=== PATIENT | female | born 1995 | race Hispanic/Latino ===

== ENCOUNTER 2021-03-24 11:12 | Outpatient (CLI) | payer OTHER ==
[2021-03-24 22:09] LABS: SARS-CoV-2 PCR by NAA Not Detected (NotDetected)
== END 2021-03-24 11:13 | disposition home or self-care (01) ==
LOC: CSHLAB 11:12
PROVIDERS: ATTEND Obstetrics & Gynecology
DX: Z20.822 Contact with and (suspected) exposure to COVID-19 (principal)
CPT/HCPCS: U0003; U0005

== ENCOUNTER 2021-03-28 04:48 | Inpatient (IN) | payer OTHER ==
[2021-03-28 05:17] VITALS: BMI 37.8
[2021-03-28] MEDS ORDERED: NS w/ Oxytocin 30 units 500 ML ONE (06:21)
[2021-03-28] MEDS ORDERED: NS w/ Oxytocin 30 units 500 ML IV SCH (06:30)
[2021-03-28] MEDS ORDERED: hydrALAZINE 20 MG/ML VIAL SLOW IVP PRN (06:30)
[2021-03-28] MEDS ORDERED: NS w/ Oxytocin 30 units 500 ML IVPB SCH (06:30)
[2021-03-28] MEDS ORDERED: Promethazine HCl 25 MG/ML VIAL IM PRN (06:30)
[2021-03-28] MEDS ORDERED: Butorphanol Tartrate 1 MG/ML VIAL SLOW IVP PRN (06:30)
[2021-03-28] MEDS ORDERED: Ondansetron PF 4 MG/2 ML Vial IVP PRN (06:30)
[2021-03-28] MEDS ORDERED: Lidocaine 1% (PF) 30 ML VIAL SC PRN (06:30)
[2021-03-28] MEDS: Lactated Ringer's 1,000 ML IV SCH ×3 (06:54→18:21)
[2021-03-28] MEDS: NS w/ Oxytocin 30 units 500 ML IV SCH (06:54)
[2021-03-28] MEDS ORDERED: Bupivacaine 0.25% HCL 30 ML VIAL ONE (08:00)
[2021-03-28 08:08] LABS: Hemoglobin 9.9 g/dL (12.0-15.5); Mean Corpuscular HGB CONC 32.4 g/dL (32.0-36.0); Mean Corpuscular Hemoglobin 28.2 pg (27.0-33.0); Mean Corpuscular Volume 87.2 fl (81.6-98.3); Mean Platelet Volume 11.9 fl (7.4-10.4); Platelet Count 255 10x3/uL (150-450); RBC Distribution Width 13.8 % (11.5-14.5); Red Blood Cell (RBC) Count 3.51 10x6/uL (3.90-5.03); White Blood Cell (WBC) Count 8.1 10x3/uL (3.5-10.5)
[2021-03-28 08:35] LABS: Syphilis Antibody Nonreactive (Nonreactive)
[2021-03-28 08:43] LABS: Hep B Surf Ag Non-Reactive S/CO (NonReactive)
[2021-03-28 08:44] LABS: Syphilis Antibody Index 0.06 S/CO (<1.00 Non-Reactive)
[2021-03-28 09:19] LABS: HBSAg Index 0.21 S/CO (0-0.99)
[2021-03-28] MEDS ORDERED: Misoprostol 100 MCG TAB ONE (16:23)
[2021-03-28] MEDS: CEFAZOLIN 2 GM in Premix Bag 1 BAG IVPB SCH (22:39)
[2021-03-28] MEDS: Misoprostol 100 MCG TAB PO PRN (23:21)
[2021-03-29] MEDS: Misoprostol 100 MCG TAB PO PRN (04:59)
[2021-03-29] MEDS: CEFAZOLIN 2 GM in Premix Bag 1 BAG IVPB SCH (06:50)
[2021-03-29] MEDS ORDERED: Misoprostol 200 MCG TAB ONE (07:26)
[2021-03-29] MEDS: NS w/ Oxytocin 30 units 500 ML IV SCH (09:23)
[2021-03-29] MEDS: Lactated Ringer's 1,000 ML IV SCH (09:26)
[2021-03-29] MEDS ORDERED: Fentanyl 2 mcg/Bup 0.1% Cadd 100 ML ONE (10:51)
[2021-03-29] MEDS ORDERED: ePHEDrine Sulfate 50 MG/10 ML VIAL SLOW IVP PRN (11:29)
[2021-03-29] MEDS ORDERED: Hydrocerin (Eucerin) Cream 120 gm Jar TOP PRN (11:29)
[2021-03-29] MEDS ORDERED: Promethazine HCl 25 MG/ML VIAL IM PRN (11:29)
[2021-03-29] MEDS ORDERED: Naloxone HCl 0.4 mg/ml Vial IVP PRN ×2 (11:29)
[2021-03-29] MEDS ORDERED: Ondansetron PF 4 MG/2 ML Vial IVP PRN ×2 (11:29→15:26)
[2021-03-29] MEDS ORDERED: Acetaminophen 325 MG TAB PO PRN (11:29)
[2021-03-29] MEDS ORDERED: Lactated Ringer's 500 ML IV PRN (11:29)
[2021-03-29] MEDS ORDERED: diphenhydrAMINE 50 MG/ML VIAL IVP PRN (11:29)
[2021-03-29] MEDS ORDERED: Communication Order-Pharmacy FS PRN (11:30)
[2021-03-29] MEDS ORDERED: Fentanyl 2 mcg/Bupivacaine 0.1% Cassette 100 ML EPIDURAL SCH (11:30)
[2021-03-29] MEDS ORDERED: Misoprostol 200 MCG TAB PR SCH (14:30)
[2021-03-29] MEDS ORDERED: Zolpidem Tartrate 5 MG TAB PO PRN (15:26)
[2021-03-29] MEDS ORDERED: Milk Of Magnesia 30 ML UDCUP PO PRN (15:26)
[2021-03-29] MEDS ORDERED: Bisacodyl 10 MG SUPP PR PRN (15:26)
[2021-03-29] MEDS ORDERED: Varicella virus, LIVE 0.5 ML VIAL SC ONE (15:26)
[2021-03-29] MEDS ORDERED: Preparation H Ointment 28 GM TUBE PR PRN (15:26)
[2021-03-29] MEDS ORDERED: diphenhydrAMINE 25 MG CAP PO PRN (15:26)
[2021-03-29] MEDS ORDERED: HYDROcodone/Acetaminophen 5/325 mg Tablet PO PRN (15:26)
[2021-03-29] MEDS ORDERED: Methylergonovine 0.2 MG/ML VIAL IM PRN (15:26)
[2021-03-29] MEDS ORDERED: Lanolin Ointment 7 GM TUBE TOP PRN (15:26)
[2021-03-29] MEDS ORDERED: Boostrix 0.5 ML (Tdap) VIAL IM ONE (15:26)
[2021-03-29] MEDS ORDERED: Misoprostol 200 MCG TAB VAG PRN (15:26)
[2021-03-29] MEDS ORDERED: Measles/Mumps/Rubella 10 MCG/0.5 ML VIAL SC ONE (15:26)
[2021-03-29] MEDS ORDERED: hydrALAZINE 20 MG/ML VIAL SLOW IVP PRN (15:26)
[2021-03-29] MEDS ORDERED: NS w/ Oxytocin 30 units 500 ML IV SCH (15:26)
[2021-03-29] MEDS ORDERED: Benzocaine-Menthol 82.5 ML CAN TOP PRN (15:26)
[2021-03-29] MEDS: Ferrous Sulfate 325 MG TAB PO SCH (18:45)
[2021-03-29] MEDS: Ibuprofen 800 MG TAB PO SCH (21:30)
[2021-03-29] MEDS: Docusate Calcium (SURFAK) 240 MG CAP PO SCH (21:30)
[2021-03-30] MEDS: Ibuprofen 800 MG TAB PO SCH ×2 (04:59→14:15)
[2021-03-30 06:08] LABS: Hemoglobin 9.7 g/dL (12.0-15.5); Mean Corpuscular HGB CONC 32.8 g/dL (32.0-36.0); Mean Corpuscular Hemoglobin 28.2 pg (27.0-33.0); Mean Platelet Volume 11.1 fl (7.4-10.4); Platelet Count 233 10x3/uL (150-450); Red Blood Cell (RBC) Count 3.44 10x6/uL (3.90-5.03); White Blood Cell (WBC) Count 10.2 10x3/uL (3.5-10.5)
[2021-03-30 08:01] VITALS: TEMP 97.9
[2021-03-30] MEDS: Lactated Ringer's 1,000 ML IV SCH (08:18)
[2021-03-30] MEDS: CEFAZOLIN 2 GM in Premix Bag 1 BAG IVPB SCH (08:18)
[2021-03-30] MEDS: Docusate Calcium (SURFAK) 240 MG CAP PO SCH (08:42)
[2021-03-30] MEDS: Ferrous Sulfate 325 MG TAB PO SCH ×2 (08:42→16:44)
[2021-03-30] MEDS ORDERED: Prenatal Vitamin 1 TAB PO SCH (09:00)
[2021-03-30 11:50] VITALS: BP 116/56
== END 2021-03-30 18:40 | disposition home or self-care (01) | DRG 807 ==
LOC: CSHLD 04:48 → CSHPP 03-29 15:25
PROVIDERS: ADMIT Obstetrics & Gynecology; ATTEND Obstetrics & Gynecology
PROC: 3E0P7VZ Introduction of Hormone into Female Reproductive, Via Natural or Artificial Opening (ICD-10-PCS; principal; 2021-03-28)
PROC: 10E0XZZ Delivery of Products of Conception, External Approach (ICD-10-PCS; 2021-03-29)
DX: O80 Encounter for full-term uncomplicated delivery (principal); Z37.0 Single live birth; Z3A.39 39 weeks gestation of pregnancy
CPT/HCPCS: 36415; 51702; 85027; 86780; 86850; 86900; 86901; 87340; J0690; J2590; J7120; S0020